=== PATIENT | male | born 1930 | race Native Hawaiian/Other Pacific Islander ===

== ENCOUNTER 2016-04-12 08:33 | Day surgery (SDC) | payer MEDICARE, BC, OTHER ==
[2016-04-10 17:38] VITALS: BMI 23.6
[~2016-04-12 08:33] MED LIST: LACTATED RINGERS 1,000 ML IV SCH; LIDOCAINE 1% 20 ML VIAL (10MG/ML) FOR IV START INTRADERMA PRN
[2016-04-12 08:57] VITALS: TEMP 97.4
[2016-04-12] MEDS ORDERED: SODIUM CHLORIDE 0.9% 1,000 ML IV ONE (09:12)
[2016-04-12] MEDS ORDERED: IV FLUID CONTINUATION 1,000 ML IV ONE (09:43)
--- NOTE | 2016-04-12 09:45 | P.PCN ---
Date of Procedure: 04/12/16 Procedure(s) Performed: Patient is an 85-year-old white male, admitted to the hospital for PEG tube malfunction and is scheduled for a PEG tube placement today. He has history of advanced dementia and noncommunicative. Procedure performed: PEG tube replacement Preoperative diagnosis: PEG tube malfunction Postoperative diagnosis: Successful PEG tube replacement with 20-[employer] balloon replacement tube Procedure After informed consent was obtained from the patient's legal guardian he was brought into the endoscopy unit. The previous placed 28-[employer] catheter was removed after the balloon was deflated. From the existing gastrostomy site , a 20-[employer] balloon replacement PEG tube was lubricated and was advanced into the stomach without any difficulty. The balloon was injected with 20 mL of water. The external bumper was placed a 5 cm keyur. Patient tolerated the procedure well. The caregiver he was told that the PEG tube can be used for feedings today.
[2016-04-12 09:47] VITALS: RESP 16
[2016-04-12 10:14] VITALS: BP 174/82; PULSE 58
== END 2016-04-12 10:17 ==
LOC: ORWHC2ENDO 08:33
PROVIDERS: ATTEND Internal Medicine Gastroenterology
DX: K94.23 Gastrostomy malfunction (principal); F03.90 Unspecified dementia, unspecified severity, without behavioral disturbance, psychotic disturbance, mood disturbance, and anxiety; F80.9 Developmental disorder of speech and language, unspecified
CPT/HCPCS: 43760

== ENCOUNTER 2016-06-29 20:41 | Inpatient (IN) | payer MEDICARE, BC, OTHER ==
[2016-06-29] MEDS ORDERED: PANTOPRAZOLE 40 MG/10 ML VIAL IVP STA (21:26)
[2016-06-29] MEDS ORDERED: ONDANSETRON 4 MG/2 ML VIAL IVP STA (21:26)
[2016-06-29] MEDS ORDERED: SODIUM CHLORIDE 0.9% 500 ML IV STA (21:26)
[2016-06-29] MEDS ORDERED: SODIUM CHLORIDE 0.9% 1,000 ML IV STA (21:26)
[2016-06-29 21:55] LABS: INR 1.2 (<1.1); Partial Thromboplastin Time 28.8 sec (22.0-30.0); Prothrombin Time 12.2 sec (9.0-12.0)
[2016-06-29 22:01] LABS: Basophils % (A) 0 %; CHCM 33.9; Eosinophils % (A) 0 %; HCT 47.5 % (39.0-53.0); HGB 15.6 gm/dL (13.0-17.5); Luc # (Auto) 0.03; Luc % (Auto) 1; Lymphocytes # (A) 0.2 k/uL (1.0-4.8); Lymphocytes % (A) 3 %; MCH 28.2 pg (25.0-35.0); MCHC 32.8 g/dL (31.0-37.0); Mean Platelet Volume 9.5; Monocytes # (A) 0.2 k/uL (0-1.0); Monocytes % (A) 4 %; Neutrophils # (A) 5.3 k/uL (1.3-7.7); Neutrophils % (A) 92 %; RBC 5.52 m/uL (4.30-5.90); RDW 14.6 % (11.5-15.5); WBC 5.7 k/uL (3.8-10.6); WBC (Perox) 6.28
[2016-06-29 22:04] LABS: ALT 21 U/L (21-72); AST 24 U/L (17-59); Alkaline Phosphatase 69 U/L (38-126); Anion Gap 14 mmol/L; Blood Urea Nitrogen 48 mg/dL (9-20); Calcium 9.6 mg/dL (8.4-10.2); Carbon Dioxide 32 mmol/L (22-30); Chloride 93 mmol/L (98-107); Glucose 195 mg/dL (74-99); Magnesium 2.6 mg/dL (1.6-2.3); Non-African American GFR(MDRD) >60 (>60 ml/min/1.73 sqM); Sodium 139 mmol/L (137-145); Total Bilirubin 0.8 mg/dL (0.2-1.3); Total Protein 6.9 g/dL (6.3-8.2)
--- NOTE | 2016-06-29 22:13 | ED ---
General Adult HPI - General Chief complaint: GI Bleed Stated complaint: GI BLEED Time Seen by Provider: 06/29/16 21:23 Source: EMS, RN notes reviewed, old records reviewed Mode of arrival: EMS Limitations: language barrier, altered mental status - History of Present Illness Initial comments: This is an 85-year-old male to the ER for evaluation of possible GI bleed. Coffee-ground emesis and PEG tube. Patient is unable to give his history, history obtained from EMS and transfer paperwork. Patient's been weak, lethargic with coffee-ground emesis in PEG tube. No active vomiting, no noted blood in stool. Patient is not on any known blood thinners. - Related Data Home Medications Medication Instructions Recorded Confirmed Aspirin 81 mg PEG/G-TUBE DAILY 01/08/15 06/29/16 Cholecalciferol [Vitamin D3] 1,000 unit PEG/G-TUBE DAILY@0800 01/08/15 06/29/16 Cyanocobalamin [Vitamin B-12] 500 mcg PEG/G-TUBE DAILY@0801/08/15 06/29/16 traZODone HCL [Desyrel] 50 mg PEG/G-TUBE HS@199901/08/15 06/29/16 LORazepam [Ativan] 0.5 tab PEG/G-TUBE Q8HR PRN 03/22/15 06/29/16 Acetaminophen [Tylenol] 500 mg PEG/G-TUBE Q6H PRN MDD 04/10/16 06/29/16 1,000MG Lactose-Reduced Food/Fiber [Jevity 90 ml PEG/G-TUBE BID 04/10/16 06/29/16 1.2 Dominic Liquid] Memantine HCl [Namenda] 5 mg PEG/G-TUBE BID 04/10/16 06/29/16 Metoprolol Succinate [Toprol XL] 25 mg PEG/G-TUBE DAILY 04/10/16 06/29/16 Skin Prep Unk 1 applic TOPICAL BID@799,199904/10/16 06/29/16 cloNIDine 0.1 MG/24HR PATCH 0.1 mg TRANSDERM FR 04/10/16 06/29/16 [Catapres-TTS] Losartan Potassium [Cozaar] 50 mg PEG/G-TUBE DAILY@1700 06/29/16 06/29/16 Allergies Allergy/AdvReac Type Severity Reaction Status Date / Time hydrocodone bitartrate AdvReac Unknown Verified 06/29/16 21:16 [From Lortab] prednisone AdvReac Unknown Verified 06/29/16 21:16 valium Allergy Unknown Uncoded 06/29/16 20:49 xanax Allergy Unknown Uncoded 06/29/16 20:49 Review of Systems ROS Statement: Those systems with pertinent positive or pertinent negative responses have been documented in the HPI. ROS Other: All systems not noted in ROS Statement are negative. Past Medical History Past Medical History: Coronary Artery Disease (CAD), CVA/TIA, Dementia, GERD/ Reflux, Hearing Disorder / Deafness, Hypertension, Memory Impairment, Osteoarthritis (OA), Pneumonia, Prostate Disorder Additional Past Medical History / Comment(s): Parkinsons, chronic kidney dis, TIA,MURMUR,BPH, MAC DEGENRATION, LT EYE SMALL CATARACT,DDD CHRONIC BACK PAIN, HIATAL HERNIA,LEWY BODY DEMENTIA, INCONT OF URINE (wears brief), OA IN DANNY SHOULDERS/BACK, [place] AND TINNITIS, WON'T WEAR HIS HEARING AID. Getting skin prep to heels danny. History of Any Multi-Drug Resistant Organisms: None Reported Past Surgical History: Heart Catheterization, Orthopedic Surgery, Tonsillectomy Additional Past Surgical History / Comment(s): Has PEG tube. Bilateral rotator cuff repair. No further surgical history available. Past Anesthesia/Blood Transfusion Reactions: No Reported Reaction Additional Past Anesthesia/Blood Transfusion Reaction / Comment(s): CLAUSTERPHOBIA, VERTIGO Past Psychological History: Anxiety Smoking Status: Former smoker Past Alcohol Use History: None Reported Additional Past Alcohol Use History / Comment(s): QUIT SMOKING MORE THAN 36 YEARS AGO. Extent of use is unknown. Past Drug Use History: None Reported - Past Family History Father History Unknown: Yes Additional Family Medical History / Comment(s): PT WAS ADOPTED Mother History Unknown: Yes Additional Family Medical History / Comment(s): PT WAS ADOPTED General Exam Limitations: language barrier, altered mental status General appearance: alert, lethargic, cachectic Head exam: Present: atraumatic, normocephalic, normal inspection Eye exam: Present: normal appearance, PERRL, EOMI. Absent: scleral icterus, conjunctival injection, periorbital swelling ENT exam: Present: normal exam, mucous membranes moist Neck exam: Present: normal inspection. Absent: tenderness, meningismus, lymphadenopathy Respiratory exam: Present: normal lung sounds bilaterally. Absent: respiratory distress, wheezes, rales, rhonchi, stridor Cardiovascular Exam: Present: regular rate, normal rhythm, normal heart sounds. Absent: systolic murmur, diastolic murmur, rubs, gallop, clicks GI/Abdominal exam: Present: soft, normal bowel sounds. Absent: distended, tenderness, guarding, rebound, rigid Extremities exam: Present: normal inspection, full ROM, normal capillary refill. Absent: tenderness, pedal edema, joint swelling, calf tenderness Back exam: Present: normal inspection Neurological exam: Present: alert, oriented X3, CN II-XII intact Psychiatric exam: Present: normal affect, normal mood Skin exam: Present: warm, dry, intact, normal color. Absent: rash Course Vital Signs 06/29/16 06/29/16 06/29/16 20:51 21:20 22:20 Temperature 98.2 F Pulse Rate 85 77 71 Respiratory 20 20 20 Rate Blood Pressure 157/75 152/75 130/65 O2 Sat by Pulse 93 L 98 97 Oximetry - Reevaluation(s) Reevaluation #1: 06/29/16 22:34 Patient is mildly lethargic although not showing any nausea vomiting of blood or blood here Medical Decision Making - Medical Decision Making 85 [place] yesterday with coffee-ground emesis and PEG, upper GI bleed, patient will be admitted for treading of hemoglobin and GI evaluation - Lab Data Result diagrams: 06/29/16 20:52 06/29/16 20:52 Lab Results 06/29/16 06/29/16 06/29/16 Range/Units 20:52 20:52 20:52 WBC 5.7 (3.8-10.6) k/uL RBC 5.52 (4.30-5.90) m/uL Hgb 15.6 (13.0-17.5) gm/dL Hct 47.5 (39.0-53.0) % MCV 86.0 (80.0-100.0) fL MCH 28.2 (25.0-35.0) pg MCHC 32.8 (31.0-37.0) g/dL RDW 14.6 (11.5-15.5) % Plt Count 153 (150-450) k/uL Neutrophils % 92 % Lymphocytes % 3 % Monocytes % 4 % Eosinophils % 0 % Basophils % 0 % Neutrophils # 5.3 (1.3-7.7) k/uL Lymphocytes # 0.2 L (1.0-4.8) k/uL Monocytes # 0.2 (0-1.0) k/uL Eosinophils # 0.0 (0-0.7) k/uL Basophils # 0.0 (0-0.2) k/uL PT (9.0-12.0) sec INR (<1.1) APTT (22.0-30.0) sec Sodium 139 (137-145) mmol/L Potassium 4.0 (3.5-5.1) mmol/L Chloride 93 L (98-107) mmol/L Carbon Dioxide 32 H (22-30) mmol/L Anion Gap 14 mmol/L BUN 48 H (9-20) mg/dL Creatinine 1.08 (0.66-1.25) mg/dL Est GFR (MDRD) Af Amer >60 (>60 ml/min/1.73 sqM) Est GFR (MDRD) Non-Af >60 (>60 ml/min/1.73 sqM) Glucose 195 H (74-99) mg/dL Calcium 9.6 (8.4-10.2) mg/dL Magnesium 2.6 H (1.6-2.3) mg/dL Total Bilirubin 0.8 (0.2-1.3) mg/dL AST 24 (17-59) U/L ALT 21 (21-72) U/L Alkaline Phosphatase 69 (38-126) U/L Total Creatine Kinase 26 L (55-170) U/L CK-MB (CK-2) 0.4 (0.0-2.4) ng/mL CK-MB (CK-2) Rel Index 1.5 Troponin I 0.018 (0.000-0.034) ng/mL Total Protein 6.9 (6.3-8.2) g/dL Albumin 3.9 (3.5-5.0) g/dL Lipase 29 (23-300) U/L 06/29/16 Range/Units 20:52 WBC (3.8-10.6) k/uL RBC (4.30-5.90) m/uL Hgb (13.0-17.5) gm/dL Hct (39.0-53.0) % MCV (80.0-100.0) fL MCH (25.0-35.0) pg MCHC (31.0-37.0) g/dL RDW (11.5-15.5) % Plt Count (150-450) k/uL Neutrophils % % Lymphocytes % % Monocytes % % Eosinophils % % Basophils % % Neutrophils # (1.3-7.7) k/uL Lymphocytes # (1.0-4.8) k/uL Monocytes # (0-1.0) k/uL Eosinophils # (0-0.7) k/uL Basophils # (0-0.2) k/uL PT 12.2 H (9.0-12.0) sec INR 1.2 (<1.1) APTT 28.8 (22.0-30.0) sec Sodium (137-145) mmol/L Potassium (3.5-5.1) mmol/L Chloride (98-107) mmol/L Carbon Dioxide (22-30) mmol/L Anion Gap mmol/L BUN (9-20) mg/dL Creatinine (0.66-1.25) mg/dL Est GFR (MDRD) Af Amer (>60 ml/min/1.73 sqM) Est GFR (MDRD) Non-Af (>60 ml/min/1.73 sqM) Glucose (74-99) mg/dL Calcium (8.4-10.2) mg/dL Magnesium (1.6-2.3) mg/dL Total Bilirubin (0.2-1.3) mg/dL AST (17-59) U/L ALT (21-72) U/L Alkaline Phosphatase (38-126) U/L Total Creatine Kinase (55-170) U/L CK-MB (CK-2) (0.0-2.4) ng/mL CK-MB (CK-2) Rel Index Troponin I (0.000-0.034) ng/mL Total Protein (6.3-8.2) g/dL Albumin (3.5-5.0) g/dL Lipase (23-300) U/L Disposition Clinical Impression: Gastrointestinal hemorrhage, Upper gastrointestinal hemorrhage Disposition: ADMITTED IP TO THIS HOSP Condition: Fair Referrals: Kody Parker MD [Primary Care Provider] - 1-2 days
[2016-06-29 22:25] LABS: Creatine Kinase MB 0.4 ng/mL (0.0-2.4); Troponin I 0.018 ng/mL (0.000-0.034)
[2016-06-29] MEDS ORDERED: ONDANSETRON 4 MG/2 ML VIAL IVP PRN (22:35)
[2016-06-30 01:29] VITALS: BMI 21.7
[2016-06-30] MEDS: PANTOPRAZOLE 40 MG/10 ML VIAL IVP SCH ×2 (08:47→22:55)
--- NOTE | 2016-06-30 09:02 | P.CONS ---
History of Present Illness - Reason for Consult Consult date: 06/30/16 GI bleed Requesting physician: Kody Parker - History of Present Illness 85-year-old gentleman patient of Dr. Parker past medical history of PEG tube with recent replacement March 2016 for malfunction, advanced dementia noncommunicative, GERD, hypertension, Parkinson's, macular degeneration, anxiety , and chronic back pain. Consultation requested for possible GI bleed. Presents to hospital for evaluation of coffee-ground colored material emanating from PEG tube. No reports of emesis gross hematochezia or melena. Admission hemoglobin 15.6. Platelet 153. Hemoglobin 04/25/2016 was 12.8. INR 1.2. BUN 48. Creatinine 1.0. Lactic acid 3.1 with hydration 1.6. Review of Systems Constitutional: Denies fever, chills, sweats, weight gain, or loss. HEENT: Negative for migraines, blurred vision or loss, earaches, drainage, tinnitus, oral mucosal lesions, dysphagia, or odynophagia. Hearing loss. Cardiac: Hypertension. Negative for chest pain, arrhythmias, or palpitation. Respiratory: Negative for shortness of breath, hemoptysis, cough, or sputum production. Gastrointestinal: See HPI for pertinent findings. Genitourinary: Negative for hematuria, urgency, frequency, polyuria, dysuria, or penile discharge. Musculoskeletal: Chronic back pain. Neurologic: Parkinson's disease. Negative for stroke or TIA. Endocrine: Negative for thyroid problems. Skin: Negative for rash or itching. Psychiatric: Anxiety. Noncommunicative advanced dementia. ROS unobtainable: due to mental status All systems: negative (See HPI medical records reviewed for ROS) Past Medical History Past Medical History: Coronary Artery Disease (CAD), CVA/TIA, Dementia, GERD/ Reflux, Hearing Disorder / Deafness, Hypertension, Memory Impairment, Osteoarthritis (OA), Pneumonia, Prostate Disorder Additional Past Medical History / Comment(s): Parkinsons, chronic kidney dis, TIA,MURMUR,BPH, MAC DEGENRATION, LT EYE SMALL CATARACT,DDD CHRONIC BACK PAIN, HIATAL HERNIA,LEWY BODY DEMENTIA, INCONT OF URINE (wears brief), OA IN [place] SHOULDERS/BACK, [place] AND TINNITIS, WON'T WEAR HIS HEARING AID. Getting skin prep to heels danny. History of Any Multi-Drug Resistant Organisms: None Reported Past Surgical History: Heart Catheterization, Orthopedic Surgery, Tonsillectomy Additional Past Surgical History / Comment(s): Has PEG tube. Bilateral rotator cuff repair. No further surgical history available. Past Anesthesia/Blood Transfusion Reactions: No Reported Reaction Additional Past Anesthesia/Blood Transfusion Reaction / Comm: CLAUSTERPHOBIA, VERTIGO Past Psychological History: Anxiety Smoking Status: Never smoker Past Alcohol Use History: None Reported Additional Past Alcohol Use History / Comment(s): QUIT SMOKING MORE THAN 36 YEARS AGO. Extent of use is unknown. Past Drug Use History: None Reported - Past Family History Father History Unknown: Yes Additional Family Medical History / Comment(s): PT WAS ADOPTED Mother History Unknown: Yes Additional Family Medical History / Comment(s): PT WAS ADOPTED Medications and Allergies Home Medications Medication Instructions Recorded Confirmed Type Aspirin 81 mg PEG/G-TUBE DAILY 01/08/15 06/29/16 History Cholecalciferol [Vitamin D3] 1,000 unit PEG/G-TUBE DAILY@0800 01/08/15 06/29/16 History Cyanocobalamin [Vitamin B-12] 500 mcg PEG/G-TUBE DAILY@0800 01/08/15 06/29/16 History traZODone HCL [Desyrel] 50 mg PEG/G-TUBE HS@199901/08/15 06/29/16 History LORazepam [Ativan] 0.5 tab PEG/G-TUBE Q8HR PRN 03/22/15 06/29/16 History Acetaminophen [Tylenol] 500 mg PEG/G-TUBE Q6H PRN MDD 04/10/16 06/29/16 History 1,000MG Lactose-Reduced Food/Fiber [Jevity 90 ml PEG/G-TUBE BID 04/10/16 06/29/16 History 1.2 Dominic Liquid] Memantine HCl [Namenda] 5 mg PEG/G-TUBE BID 04/10/16 06/29/16 History Metoprolol Succinate [Toprol XL] 25 mg PEG/G-TUBE DAILY 04/10/16 06/29/16 History Skin Prep Unk 1 applic TOPICAL BID@0800,199904/10/16 06/29/16 History cloNIDine 0.1 MG/24HR PATCH 0.1 mg TRANSDERM FR 04/10/16 06/29/16 History [Catapres-TTS] Losartan Potassium [Cozaar] 50 mg PEG/G-TUBE DAILY@1700 06/29/16 06/29/16 History Allergies Allergy/AdvReac Type Severity Reaction Status Date / Time hydrocodone bitartrate AdvReac Unknown Verified 06/29/16 21:16 [From Lortab] prednisone AdvReac Unknown Verified 06/29/16 21:16 valium Allergy Unknown Uncoded 06/29/16 20:49 xanax Allergy Unknown Uncoded 06/29/16 20:49 Physical Exam Vitals: Vital Signs Temp Pulse Pulse Resp BP BP Pulse Ox 06/30/16 04:00 97.1 F L 115 H 18 115/74 93 L 06/29/16 23:30 98 F 85 18 169/79 95 06/29/16 22:58 98.4 F 78 18 130/65 98 Intake and Output 06/29/16 06/30/16 06/30/16 22:59 06:59 14:59 Other: # Voids 1 # Bowel Movements 1 Weight 61 kg General appearance: The patient is awake no acute distress noncommunicative. HET: Head is normocephalic and atraumatic. Pupils are equal and reactive. Oropharynx is clear without lesions. Neck: Supple without lymphadenopathy. Trachea midline. Heart: S1 S2. Regular rate and rhythm. Lungs: No crackles or wheezes are heard. Abdomen: Soft, peg tube without erythema or drainage, bleeding. Nondistended with bowel sounds. No peritoneal signs. No palpable organomegaly or masses. Extremities: Normal skin color and turgor. No cyanosis, rash, ulceration, clubbing, or edema. Radial and pedal pulses are 2/4 bilaterally. Neurological: No focal deficits. Strength and sensation are grossly intact. Results CBC & Chem 7: 06/29/16 20:52 06/29/16 20:52 Assessment and Plan (1) Upper gastrointestinal hemorrhage Narrative/Plan: Coffee-ground colored gastric fluid emanating from PEG site possible peptic ulcer disease possible gastritis possible esophagitis Status: Acute (2) S/P percutaneous endoscopic gastrostomy (PEG) tube placement Narrative/Plan: History of PEG tube Status: Acute (3) Dementia Status: Acute (4) Parkinsons disease Status: Acute Plan: 1. IV Protonix 40 mg every 12 hours. 2. Monitor CBC closely. 3. Bedside peg lavage performed with 60-90 ml water; bilious fluid with black randall noted.Hemoglobin in the 15 range. EGD contingent on clinical course at this time would advise close observation if patient continues to manifest symptoms of active GI bleeding will proceed accordingly. 4. Start tube feeds slowly this afternoon and observe. 5. We'll follow with you. Thank you for this kind referral and the opportunity to participate in the care of your patient. This consultation was discussed with Dr. Mcclure. The impression and plan of care have been directed as dictated.
[2016-06-30] MEDS ORDERED: LORazepam 0.5 MG TAB PEG/G-TUBE PRN (14:17)
--- NOTE | 2016-06-30 14:17 | P.HPIM ---
History of Present Illness H&P Date: 06/30/16 Chief Complaint: Coffee-ground emesis. This is an 85-year-old male one of my patient with a previous medical history significant for CAD, hypertension and hypertensive cardio vascular disease, large prostate, vascular dementia, parkinsonism, chronic and disease stage III, PEG tube placement and replacement about a few months back, patient was in his usual state of health about yesterday when he developed to have a significant coffee-ground emesis as well as a coffee ground material coming out of the PEG tube site looks, patient blood pressure was stable and vital signs were all stable however because of the presentation he was sent to the ER for evaluation his hemoglobin is normal however because of that he was admitted to the hospital for evaluation and GI consultation for evaluation of the PEG tube site and for possible upper GI bleed. Patient has been [facility] at [facility] by our service, he has been bed ridden/wheelchair within secondary to significant spasticity in both lower extremities, and he has been using tube feeding along with comfort food. Review of Systems Constitutional: Reports anorexia, Reports fatigue, Reports malaise, Reports weakness, Reports weight loss Eyes: bilateral bulging eye, denies decreased vision, denies diplopia, denies discharge Ears: bilateral: decreased hearing Ears, nose, mouth and throat: Reports dysphagia, Denies neck lump, Denies sore throat, Denies vertigo Cardiovascular: Reports high blood pressure, Reports shortness of breath, Denies chest pain, Denies decreased exercise tolerance, Denies dyspnea on exertion, Denies phlebitis, Denies rapid heart beat Respiratory: Denies congestion, Denies cough with sputum, Denies dyspnea, Denies home oxygen, Denies sleep apnea, Denies snoring, Denies wheezing Gastrointestinal: Reports nausea, Reports vomiting, Denies abdominal pain, Denies bloating, Denies BRBPR, Denies change in bowel habits, Denies coffee ground emesis, Denies heartburn, Denies hematemesis, Denies hematochezia, Denies indigestion, Denies melena Genitourinary: Denies dysuria, Denies nocturia Musculoskeletal: Reports atrophy, Reports frequent falls, Reports gait dysfunction, Reports low back pain, Reports morning stiffness Musculoskeletal: absent: ankle pain, ankle stiffness, ankle swelling, elbow pain , elbow stiffness, elbow swelling, foot pain, foot stiffness, foot swelling, hand pain, hand stiffness, hand swelling, hip pain, hip stiffness, hip swelling , knee pain, knee stiffness, knee swelling, shoulder pain, shoulder stiffness, shoulder swelling, wrist pain, wrist stiffness, wrist swelling Integumentary: Denies pruritus, Denies rash Neurological: Reports balance difficulties, Reports change in mentation, Reports confusion, Reports gait dysfunction, Reports hearing difficulties, Reports spasticity, Reports tremors, Reports weakness, Denies numbness Psychiatric: Reports anxiety, Reports memory loss, Denies depression, Denies sadness/tearfulness, Denies sleep disturbances, Denies suicidal ideation Endocrine: Denies fatigue, Denies weight change Past Medical History Past Medical History: Coronary Artery Disease (CAD), CVA/TIA, Dementia, GERD/ Reflux, Hearing Disorder / Deafness, Hypertension, Memory Impairment, Osteoarthritis (OA), Pneumonia, Prostate Disorder Additional Past Medical History / Comment(s): Parkinsons, chronic kidney dis, TIA,MURMUR,BPH, MAC DEGENRATION, LT EYE SMALL CATARACT,DDD CHRONIC BACK PAIN, HIATAL HERNIA,LEWY BODY DEMENTIA, INCONT OF URINE (wears brief), OA IN DANNY SHOULDERS/BACK, [place] AND TINNITIS, WON'T WEAR HIS HEARING AID. Getting skin prep to heels danny. History of Any Multi-Drug Resistant Organisms: None Reported Past Surgical History: Heart Catheterization, Orthopedic Surgery, Tonsillectomy Additional Past Surgical History / Comment(s): Has PEG tube. Bilateral rotator cuff repair. No further surgical history available. Past Anesthesia/Blood Transfusion Reactions: No Reported Reaction Additional Past Anesthesia/Blood Transfusion Reaction / Comment(s): CLAUSTERPHOBIA, VERTIGO Past Psychological History: Anxiety Smoking Status: Never smoker Past Alcohol Use History: None Reported Additional Past Alcohol Use History / Comment(s): QUIT SMOKING MORE THAN 36 YEARS AGO. Extent of use is unknown. Past Drug Use History: None Reported - Past Family History Father History Unknown: Yes Additional Family Medical History / Comment(s): PT WAS ADOPTED Mother History Unknown: Yes Additional Family Medical History / Comment(s): PT WAS ADOPTED Medications and Allergies Home Medications Medication Instructions Recorded Confirmed Type Aspirin 81 mg PEG/G-TUBE DAILY 01/08/15 06/29/16 History Cholecalciferol [Vitamin D3] 1,000 unit PEG/G-TUBE DAILY@0800 01/08/15 06/29/16 History Cyanocobalamin [Vitamin B-12] 500 mcg PEG/G-TUBE DAILY@0800 01/08/15 06/29/16 History traZODone HCL [Desyrel] 50 mg PEG/G-TUBE HS@199901/08/15 06/29/16 History LORazepam [Ativan] 0.5 tab PEG/G-TUBE Q8HR PRN 03/22/15 06/29/16 History Acetaminophen [Tylenol] 500 mg PEG/G-TUBE Q6H PRN MDD 04/10/16 06/29/16 History 1,000MG Lactose-Reduced Food/Fiber [Jevity 90 ml PEG/G-TUBE BID 04/10/16 06/29/16 History 1.2 Dominic Liquid] Memantine HCl [Namenda] 5 mg PEG/G-TUBE BID 04/10/16 06/29/16 History Metoprolol Succinate [Toprol XL] 25 mg PEG/G-TUBE DAILY 04/10/16 06/29/16 History Skin Prep Unk 1 applic TOPICAL BID@799,199904/10/16 06/29/16 History cloNIDine 0.1 MG/24HR PATCH 0.1 mg TRANSDERM FR 04/10/16 06/29/16 History [Catapres-TTS] Losartan Potassium [Cozaar] 50 mg PEG/G-TUBE DAILY@1700 06/29/16 06/29/16 History Allergies Allergy/AdvReac Type Severity Reaction Status Date / Time hydrocodone bitartrate AdvReac Unknown Verified 06/29/16 21:16 [From Lortab] prednisone AdvReac Unknown Verified 06/29/16 21:16 valium Allergy Unknown Uncoded 06/29/16 20:49 xanax Allergy Unknown Uncoded 06/29/16 20:49 Physical Exam Vitals: Vital Signs Temp Pulse Pulse Resp BP BP Pulse Ox 06/30/16 12:00 75 16 157/71 95 06/30/16 08:00 98.1 F 75 16 131/62 95 06/30/16 04:00 97.1 F L 115 H 18 115/74 93 L 06/29/16 23:30 98 F 85 18 169/79 95 06/29/16 22:58 98.4 F 78 18 130/65 98 Intake and Output 06/29/16 06/30/16 06/30/16 22:59 06:59 14:59 Other: # Voids 1 # Bowel Movements 1 Weight 61 kg 61 kg Patient Weight 07/01/16 06:59 Weight 61 kg - Constitutional General appearance: no acute distress, thin - EENT Eyes: edentulous, EOMI, PERRLA, no ptosis, no scleral icterus, normal appearance ENT: hard of hearing, normal oropharynx, no thrush Ears: bilateral: normal - Neck Neck: no lymphadenopathy, no normal ROM, no other, rigidity, no stridor, no thyromegaly Carotids: bilateral: upstroke delayed Thyroid: bilateral: normal size - Respiratory Respiratory: bilateral: diminished, negative: dullness, rales, rhonchi, wheezing , prolonged expiration, prolonged inspiration - Cardiovascular Rhythm: regular Heart sounds: normal: S1, S2 Abnormal Heart Sounds: systolic murmur, no rub, S4 Gallop, no click - Gastrointestinal General gastrointestinal: normal bowel sounds, soft, no splenomegaly, no tenderness (There is a PEG tube), no umbilical hernia - Integumentary Integumentary: normal, normal turgor - Neurologic Neurologic: CNII-XII intact - Musculoskeletal Musculoskeletal: generalized weakness - Psychiatric Psychiatric: no A&O x's 3, no appropriate affect, no intact judgment & insight Results CBC & Chem 7: 06/29/16 20:52 06/29/16 20:52 Thrombosis Risk Factor Assmnt - DVT/VTE Prophylaxis DVT/VTE Prophylaxis: Pharmacologic Prophylaxis ordered, Mechanical Prophylaxis ordered - Choose All That Apply Other Risk Factors: Yes Each Risk Factor Represents 3 Points: Age 75 years or older Thrombosis Risk Factor Assessment Total Risk Factor Score: 3 Thrombosis Risk Factor Assessment Level: Moderate Risk Assessment and Plan Plan: Assessment and plan: 1. Coffee-ground emesis with possible GI bleed. Hemoglobin is stable at this time, continue IV fluid resuscitation the form of normal saline, start the patient on Protonix 40 mg IV push every 12 hours, GI consultation for possible EGD if needed be. Monitor the patient hemoglobin and hematocrit every 8 hours for the next 24 hours. 2. CAD. Continue patient on metoprolol 25 mg per PEG tube once every day, hold aspirin for now. 3. Hypertension and hypertensive cardiovascular disease. Continue clonidine patch 0.1 mg once every week, continue metoprolol 25 mg per PEG tube once every day, increase losartan to 100 mg per PEG tube once every day. 4. Lewy body dementia. Continue patient on Namenda 5 mg per PEG tube twice every day. 5. Parkinsonism. Patient is not taking any medication at this time continue lorazepam 0.5 mg per PEG tube 3 times every day as needed. 6. Enlarged prostate. Monitor the patient for urinary retention. 7. History of TIA in the past stable at this time. 8. Behavioral disturbances with the dementia. Continue Ativan 0.5 mg per PEG tube 3 times every day. 9. Chronic kidney disease stage II. Stable at this time. 10. DVT prophylaxis. Continue patient on heparin 5000 units subcutaneously every 12 hours, bilateral knee-high ZARA marielose, SCD's. 11. GI prophylaxis. Protonix 40 mg IV push every 12 hours. 12. Patient is full code. 13. Admit to inpatient. Estimate a length of stay 2 midnights.
[2016-06-30] MEDS ORDERED: cloNIDine 0.1 MG/24HR PATCH 1 PATCH PATCH TRANSDERM SCH (15:00)
[2016-06-30 15:14] LABS: Basophils % (A) 0 %; CH 28.8; CHCM 33.1; Eosinophils % (A) 0 %; HDW 2.75; Luc % (Auto) 2; Lymphocytes # (A) 0.4 k/uL (1.0-4.8); Lymphocytes % (A) 9 %; MCH 28.4 pg (25.0-35.0); MCHC 32.5 g/dL (31.0-37.0); MCV 87.4 fL (80.0-100.0); Mean Platelet Volume 8.6; Monocytes # (A) 0.2 k/uL (0-1.0); Monocytes % (A) 6 %; Neutrophils # (A) 3.4 k/uL (1.3-7.7); Neutrophils % (A) 83 %; RBC 3.88 m/uL (4.30-5.90); RDW 14.9 % (11.5-15.5); WBC 4.1 k/uL (3.8-10.6); WBC (Perox) 4.62
[2016-06-30] MEDS ORDERED: SKIN PREP TOPICAL SCH (20:00)
[2016-06-30] MEDS: LOSARTAN 50 MG TAB PEG/G-TUBE SCH (22:53)
[2016-06-30] MEDS: MEMANTINE 5 MG TAB PEG/G-TUBE SCH (22:54)
[2016-06-30] MEDS: HEPARIN SODIUM,PORCINE 5,000 UNIT/ML 1 ML VIAL SQ SCH (22:54)
[2016-06-30] MEDS: traZODone HCL 50 MG TAB PEG/G-TUBE SCH (22:54)
[2016-07-01 06:10] LABS: Basophils % (A) 0 %; CH 28.8; Eosinophils % (A) 1 %; HCT 31.5 % (39.0-53.0); HDW 2.84; HGB 10.3 gm/dL (13.0-17.5); Luc # (Auto) 0.09; Luc % (Auto) 3; Lymphocytes # (A) 0.3 k/uL (1.0-4.8); Lymphocytes % (A) 10 %; MCH 28.8 pg (25.0-35.0); MCHC 32.9 g/dL (31.0-37.0); MCV 87.7 fL (80.0-100.0); Mean Platelet Volume 9.3; Monocytes # (A) 0.3 k/uL (0-1.0); Monocytes % (A) 8 %; Neutrophils # (A) 2.6 k/uL (1.3-7.7); Neutrophils % (A) 78 %; RBC 3.59 m/uL (4.30-5.90); RDW 14.7 % (11.5-15.5); WBC 3.3 k/uL (3.8-10.6); WBC (Perox) 3.56
[2016-07-01 06:34] LABS: ALT 27 U/L (21-72); AST 17 U/L (17-59); Alkaline Phosphatase 51 U/L (38-126); Anion Gap 6 mmol/L; Blood Urea Nitrogen 29 mg/dL (9-20); Calcium 8.3 mg/dL (8.4-10.2); Carbon Dioxide 27 mmol/L (22-30); Chloride 110 mmol/L (98-107); Glucose 93 mg/dL (74-99); Non-African American GFR(MDRD) >60 (>60 ml/min/1.73 sqM); Potassium 3.3 mmol/L (3.5-5.1); Sodium 143 mmol/L (137-145); Total Bilirubin 0.6 mg/dL (0.2-1.3)
[2016-07-01] MEDS: CHOLECALCIFEROL 1,000 UNIT TAB PEG/G-TUBE SCH ×2 (08:12→09:57)
[2016-07-01] MEDS: PANTOPRAZOLE 40 MG/10 ML VIAL IVP SCH ×2 (08:12→20:57)
[2016-07-01] MEDS: HEPARIN SODIUM,PORCINE 5,000 UNIT/ML 1 ML VIAL SQ SCH ×2 (08:13→20:59)
[2016-07-01] MEDS ORDERED: METOPROLOL SUCCINATE (ER) 25 MG TAB.ER.24H PO SCH (09:00)
[2016-07-01] MEDS: POTASSIUM CHLORIDE 20 MEQ, LIDOCAINE 2% INJ 20 MG in SODIUM CHLORIDE 0.9% 100 ML IVPB SCH ×3 (09:36→14:31)
[2016-07-01] MEDS: METOPROLOL TARTRATE 12.5 MG TAB PO SCH ×2 (09:57→20:57)
[2016-07-01] MEDS: MEMANTINE 5 MG TAB PEG/G-TUBE SCH ×2 (09:57→20:57)
--- NOTE | 2016-07-01 10:18 | P.PN ---
Subjective This is an 85-year-old male one of my patient with a previous medical history significant for CAD, hypertension and hypertensive cardio vascular disease, large prostate, vascular dementia, parkinsonism, chronic and disease stage III, PEG tube placement and replacement about a few months back, patient was in his usual state of health about yesterday when he developed to have a significant coffee-ground emesis as well as a coffee ground material coming out of the PEG tube site looks, patient blood pressure was stable and vital signs were all stable however because of the presentation he was sent to the ER for evaluation his hemoglobin is normal however because of that he was admitted to the hospital for evaluation and GI consultation for evaluation of the PEG tube site and for possible upper GI bleed. Patient has been cared for at [facility] by our service, he has been bed ridden/wheelchair within secondary to significant spasticity in both lower extremities, and he has been using tube feeding along with comfort food. 07/01: Patient has been seen by GI with recommendations to continue Protonix 40 mg every 12 hours, bedside PEG lavage. Hemoglobin has dropped to 10.3. Potassium will be replaced. Metoprolol succinate changed to Lopressor to be given through PEG tube. Objective - Vital Signs Vital signs: Vital Signs Temp 97.1 F L 07/01/16 08:00 Pulse 65 07/01/16 08:00 Resp 24 07/01/16 08:00 BP 170/79 07/01/16 08:00 Pulse Ox 98 07/01/16 08:00 Intake & Output 06/30/16 07/01/16 07/01/16 18:59 06:59 18:59 Intake Total 1000 Balance 1000 Weight 61 kg 60.5 kg Intake: Intake, IV Titration 1000 Amount Sodium Chloride 0.9% 1, 1000 000 ml @ 100 mls/hr IV . Q10H STA Rx#:[id number] Other: Voiding Method Diaper Incontinent # Voids 1 # Bowel Movements 1 - Exam General appearance: no acute distress, thin - EENT Eyes: edentulous, EOMI, PERRLA, no ptosis, no scleral icterus, normal appearance ENT: hard of hearing, normal oropharynx, no thrush Ears: bilateral: normal - Neck Neck: no lymphadenopathy, no normal ROM, no other, rigidity, no stridor, no thyromegaly Carotids: bilateral: upstroke delayed Thyroid: bilateral: normal size - Respiratory Respiratory: bilateral: diminished, negative: dullness, rales, rhonchi, wheezing , prolonged expiration, prolonged inspiration - Cardiovascular Rhythm: regular Heart sounds: normal: S1, S2 Abnormal Heart Sounds: systolic murmur, no rub, S4 Gallop, no click - Gastrointestinal General gastrointestinal: normal bowel sounds, soft, no splenomegaly, no tenderness (There is a PEG tube), no umbilical hernia - Integumentary Integumentary: normal, normal turgor - Neurologic Neurologic: CNII-XII intact - Musculoskeletal Musculoskeletal: generalized weakness - Psychiatric Psychiatric: no A&O x's 3, no appropriate affect, no intact judgment & insight - Labs CBC & Chem 7: 07/01/16 05:50 07/01/16 05:50 Labs: Abnormal Lab Results - Last 24 Hours (Table) 06/30/16 07/01/16 07/01/16 Range/Units 14:43 05:50 05:50 WBC 3.3 L (3.8-10.6) k/uL RBC 3.88 L 3.59 L (4.30-5.90) m/uL Hgb 11.0 L D 10.3 L (13.0-17.5) gm/dL Hct 34.0 L 31.5 L (39.0-53.0) % Plt Count 134 L 121 L (150-450) k/uL Lymphocytes # 0.4 L 0.3 L (1.0-4.8) k/uL Potassium 3.3 L (3.5-5.1) mmol/L Chloride 110 H (98-107) mmol/L BUN 29 H (9-20) mg/dL Calcium 8.3 L (8.4-10.2) mg/dL Total Protein 5.0 L (6.3-8.2) g/dL Albumin 2.5 L (3.5-5.0) g/dL Assessment and Plan Plan: 1. Coffee-ground emesis with possible GI bleed. Hemoglobin is stable at this time, continue IV fluid resuscitation the form of normal saline, start the patient on Protonix 40 mg IV push every 12 hours, GI consultation for possible EGD if needed be. Monitor the patient hemoglobin and hematocrit every 8 hours for the next 24 hours. PEG tube irrigation. 2. CAD. Continue patient on metoprolol 25 mg per PEG tube once every day, hold aspirin for now. 3. Hypertension and hypertensive cardiovascular disease. Continue clonidine patch 0.1 mg once every week, continue metoprolol 25 mg per PEG tube once every day, increase losartan to 100 mg per PEG tube once every day. 4. Lewy body dementia. Continue patient on Namenda 5 mg per PEG tube twice every day. 5. Parkinsonism. Patient is not taking any medication at this time continue lorazepam 0.5 mg per PEG tube 3 times every day as needed. 6. Enlarged prostate. Monitor the patient for urinary retention. 7. History of TIA in the past stable at this time. 8. Behavioral disturbances with the dementia. Continue Ativan 0.5 mg per PEG tube 3 times every day. 9. Chronic kidney disease stage II. Stable at this time. 10. DVT prophylaxis. Continue patient on heparin 5000 units subcutaneously every 12 hours, bilateral knee-high ZARA hose, SCD's. 11. GI prophylaxis. Protonix 40 mg IV push every 12 hours. 12. Patient is full code. 13. Admit to inpatient. Estimate a length of stay 2 midnights. Discharge plan: Return to [facility] on Sunday Impression and plan of care have been directed as dictated by the signing physician. Isidra Potter nurse practitioner acting as scribe for signing physician. Time with Patient: Greater than 30
[2016-07-01] MEDS: LOSARTAN 50 MG TAB PEG/G-TUBE SCH (16:27)
[2016-07-01] MEDS: traZODone HCL 50 MG TAB PEG/G-TUBE SCH (20:57)
[2016-07-02 05:04] LABS: Appearance,Urine Clear (Clear); Bilirubin,Urine Negative (Negative); Glucose,Urine (UA) Trace (Negative); Ketones,Urine Negative (Negative); Leukocyte Esterase,Urine Negative (Negative); Nitrite,Urine Negative (Negative); Protein,Urine Negative (Negative); Specific Gravity,Urine 1.012 (1.001-1.035); UA Billing (MACRO vs. MICRO) CHEM
[2016-07-02 06:34] LABS: CH 28.4; CHCM 32.8; HDW 2.94; HGB 10.8 gm/dL (13.0-17.5); MCH 28.5 pg (25.0-35.0); MCHC 32.7 g/dL (31.0-37.0); MCV 87.1 fL (80.0-100.0); Mean Platelet Volume 8.9; RDW 14.5 % (11.5-15.5); WBC 3.5 k/uL (3.8-10.6)
[2016-07-02 07:03] LABS: ALT 22 U/L (21-72); AST 16 U/L (17-59); Alkaline Phosphatase 83 U/L (38-126); Anion Gap 9 mmol/L; Blood Urea Nitrogen 24 mg/dL (9-20); Calcium 8.6 mg/dL (8.4-10.2); Carbon Dioxide 24 mmol/L (22-30); Chloride 109 mmol/L (98-107); Glucose 161 mg/dL (74-99); Non-African American GFR(MDRD) >60 (>60 ml/min/1.73 sqM); Potassium 3.3 mmol/L (3.5-5.1); Sodium 142 mmol/L (137-145); Total Bilirubin 0.4 mg/dL (0.2-1.3); Total Protein 5.3 g/dL (6.3-8.2)
[2016-07-02] MEDS ORDERED: POTASSIUM CHLORIDE ORAL LIQUID 40 MEQ/30 ML CUP PO ONE (09:30)
[2016-07-02] MEDS: METOPROLOL TARTRATE 12.5 MG TAB PO SCH ×2 (09:35→22:02)
[2016-07-02] MEDS: PANTOPRAZOLE 40 MG/10 ML VIAL IVP SCH ×2 (09:35→22:02)
[2016-07-02] MEDS: HEPARIN SODIUM,PORCINE 5,000 UNIT/ML 1 ML VIAL SQ SCH (09:36)
[2016-07-02] MEDS: CHOLECALCIFEROL 1,000 UNIT TAB PEG/G-TUBE SCH (09:36)
[2016-07-02] MEDS: MEMANTINE 5 MG TAB PEG/G-TUBE SCH ×2 (09:36→22:02)
--- NOTE | 2016-07-02 09:46 | P.PN ---
Subjective This is an 85-year-old male one of my patient with a previous medical history significant for CAD, hypertension and hypertensive cardio vascular disease, large prostate, vascular dementia, parkinsonism, chronic and disease stage III, PEG tube placement and replacement about a few months back, patient was in his usual state of health about yesterday when he developed to have a significant coffee-ground emesis as well as a coffee ground material coming out of the PEG tube site looks, patient blood pressure was stable and vital signs were all stable however because of the presentation he was sent to the ER for evaluation his hemoglobin is normal however because of that he was admitted to the hospital for evaluation and GI consultation for evaluation of the PEG tube site and for possible upper GI bleed. Patient has been cared for at [facility] by our service, he has been bed ridden/wheelchair within secondary to significant spasticity in both lower extremities, and he has been using tube feeding along with comfort food. 07/01: Patient has been seen by GI with recommendations to continue Protonix 40 mg every 12 hours, bedside PEG lavage. Hemoglobin has dropped to 10.3. Potassium will be replaced. Metoprolol succinate changed to Lopressor to be given through PEG tube. 07/02: Please note bedside PEG lavage was not ordered. He has been resumed on tube feedings. He should and is on PEG tube feedings. Potassium will be replaced. Heparin discontinued due to low platelets and GI bleed. Catapres patch increased due to high blood pressure readings. Patient will be transferred to [facility]. Objective - Vital Signs Vital signs: Vital Signs Temp 97.7 F 07/01/16 12:00 Pulse 60 07/01/16 12:00 Resp 20 07/01/16 12:00 BP 178/77 07/01/16 12:00 Pulse Ox 100 07/01/16 12:00 Intake & Output 06/30/16 07/01/16 07/01/16 18:59 06:59 18:59 Intake Total 1000 Balance 1000 Weight 61 kg 60.5 kg Intake: Intake, IV Titration 1000 Amount Sodium Chloride 0.9% 1, 1000 000 ml @ 100 mls/hr IV . Q10H STA Rx#:[id number] Other: Voiding Method Diaper Diaper Incontinent Incontinent # Voids 1 1 # Bowel Movements 1 1 - Exam General appearance: no acute distress, thin - EENT Eyes: edentulous, EOMI, PERRLA, no ptosis, no scleral icterus, normal appearance ENT: hard of hearing, normal oropharynx, no thrush Ears: bilateral: normal - Neck Neck: no lymphadenopathy, no normal ROM, no other, rigidity, no stridor, no thyromegaly Carotids: bilateral: upstroke delayed Thyroid: bilateral: normal size - Respiratory Respiratory: bilateral: diminished, negative: dullness, rales, rhonchi, wheezing , prolonged expiration, prolonged inspiration - Cardiovascular Rhythm: regular Heart sounds: normal: S1, S2 Abnormal Heart Sounds: systolic murmur, no rub, S4 Gallop, no click - Gastrointestinal General gastrointestinal: normal bowel sounds, soft, no splenomegaly, no tenderness (There is a PEG tube), no umbilical hernia - Integumentary Integumentary: normal, normal turgor - Neurologic Neurologic: CNII-XII intact - Musculoskeletal Musculoskeletal: generalized weakness - Psychiatric Psychiatric: no A&O x's 3, no appropriate affect, no intact judgment & insight - Labs CBC & Chem 7: 07/02/16 06:12 07/02/16 06:12 Labs: Abnormal Lab Results - Last 24 Hours (Table) 06/30/16 07/01/16 07/01/16 Range/Units 14:43 05:50 05:50 WBC 3.3 L (3.8-10.6) k/uL RBC 3.88 L 3.59 L (4.30-5.90) m/uL Hgb 11.0 L D 10.3 L (13.0-17.5) gm/dL Hct 34.0 L 31.5 L (39.0-53.0) % Plt Count 134 L 121 L (150-450) k/uL Lymphocytes # 0.4 L 0.3 L (1.0-4.8) k/uL Potassium 3.3 L (3.5-5.1) mmol/L Chloride 110 H (98-107) mmol/L BUN 29 H (9-20) mg/dL Calcium 8.3 L (8.4-10.2) mg/dL Total Protein 5.0 L (6.3-8.2) g/dL Albumin 2.5 L (3.5-5.0) g/dL Assessment and Plan Plan: 1. Coffee-ground emesis with possible GI bleed. Hemoglobin is stable at this time, continue IV fluid resuscitation the form of normal saline, start the patient on Protonix 40 mg IV push every 12 hours, GI consultation for possible EGD if needed be. Monitor the patient hemoglobin and hematocrit. 2. CAD. Continue patient on metoprolol 25 mg per PEG tube once every day, hold aspirin for now. 3. Hypertension and hypertensive cardiovascular disease. Continue clonidine patch increased 0.2 mg once every week, continue metoprolol 25 mg per PEG tube once every day, increase losartan to 100 mg per PEG tube once every day. 4. Lewy body dementia. Continue patient on Namenda 5 mg per PEG tube twice every day. 5. Parkinsonism. Patient is not taking any medication at this time continue lorazepam 0.5 mg per PEG tube 3 times every day as needed. 6. Enlarged prostate. Monitor the patient for urinary retention. 7. History of TIA in the past stable at this time. 8. Behavioral disturbances with the dementia. Continue Ativan 0.5 mg per PEG tube 3 times every day. 9. Chronic kidney disease stage II. Stable at this time. 10. DVT prophylaxis. Continue patient on heparin 5000 units subcutaneously every 12 hours, bilateral knee-high ZARA hose, SCD's. 11. GI prophylaxis. Protonix 40 mg IV push every 12 hours. 12. Patient is full code. 13. Admit to inpatient. Estimate a length of stay 2 midnights. Discharge plan: Return to [facility] on Sunday Impression and plan of care have been directed as dictated by the signing physician. Isidra Potter nurse practitioner acting as scribe for signing physician. Time with Patient: Greater than 30
[2016-07-02] MEDS ORDERED: cloNIDine 0.2 MG/24HR PATCH 1 PATCH PATCH TRANSDERM SCH (10:30)
[2016-07-02] MEDS: LOSARTAN 50 MG TAB PEG/G-TUBE SCH (16:59)
[2016-07-02] MEDS: traZODone HCL 50 MG TAB PEG/G-TUBE SCH (22:02)
[2016-07-02 23:50] VITALS: RESP 16
[2016-07-03] MEDS ORDERED: ACETAMINOPHEN TAB 325 MG TAB PO PRN (00:27)
[2016-07-03 07:19] VITALS: BP 167/75; PULSE 61; TEMP 97.8
[2016-07-03] MEDS: PANTOPRAZOLE 40 MG/10 ML VIAL IVP SCH (08:22)
[2016-07-03] MEDS: METOPROLOL TARTRATE 12.5 MG TAB PO SCH (08:22)
[2016-07-03] MEDS: MEMANTINE 5 MG TAB PEG/G-TUBE SCH (08:23)
[2016-07-03] MEDS: CHOLECALCIFEROL 1,000 UNIT TAB PEG/G-TUBE SCH (08:23)
--- NOTE | 2016-07-03 08:54 | P.PN ---
Subjective Principal diagnosis: GI bleed 85-year-old male with a history of Parkinson's and PEG tube admitted with coffee -ground gastric fluid emanating from PEG tube. Patient was started on tube feeds over the weekend without recurrence of GI bleed. Hemoglobin stable 10.8 yesterday. Objective - Vital Signs Vital signs: Vital Signs Temp 97.8 F 07/03/16 07:00 Pulse 61 07/03/16 07:00 Resp 16 07/03/16 07:00 BP 167/75 07/03/16 07:00 Pulse Ox 93 L 07/03/16 07:00 Intake & Output 07/02/16 07/03/16 07/03/16 18:59 06:59 18:59 Intake Total 200 600 Balance 200 600 Weight 65.5 kg Intake: Tube Feeding 200 600 Other: Voiding Method Diaper Diaper Incontinent Incontinent # Voids 2 2 # Bowel Movements 0 - Exam General appearance: The patient is awake no acute distress noncommunicative. HET: Head is normocephalic and atraumatic. Pupils are equal and reactive. Oropharynx is clear without lesions. Neck: Supple without lymphadenopathy. Trachea midline. Heart: S1 S2. Regular rate and rhythm. Lungs: No crackles or wheezes are heard. Abdomen: Soft, peg tube without erythema or drainage, bleeding. Tube feeds infusing. Nondistended with bowel sounds. No peritoneal signs. No palpable organomegaly or masses. Extremities: Normal skin color and turgor. No cyanosis, rash, ulceration, clubbing, or edema. Radial and pedal pulses are 2/4 bilaterally. Neurological: No focal deficits. Strength and sensation are grossly intact. - Labs CBC & Chem 7: 07/02/16 06:12 07/02/16 06:12 Labs: Microbiology - Last 24 Hours (Table) 07/02/16 04:53 Urine Culture - Preliminary Urine,Clean Catch Assessment and Plan (1) Upper gastrointestinal hemorrhage Narrative/Plan: Coffee-ground colored gastric fluid emanating from PEG site possible peptic ulcer disease possible gastritis possible esophagitis Status: Acute (2) S/P percutaneous endoscopic gastrostomy (PEG) tube placement Narrative/Plan: History of PEG tube Status: Acute (3) Dementia Status: Acute (4) Parkinsons disease Status: Acute Plan: 1. Continue GI prophylaxis on discharge Protonix 40 mg daily. 2. No plans to proceed with EGD considering hemoglobin has remained stable without evidence of overt GI bleed. We'll follow as needed. Assessment and plan a care discussed with Dr. Guillaume.
[2016-07-03 09:00] LABS: CH 27.6; CHCM 32.4; HCT 33.3 % (39.0-53.0); HDW 3.04; HGB 11.1 gm/dL (13.0-17.5); MCH 28.6 pg (25.0-35.0); MCHC 33.4 g/dL (31.0-37.0); MCV 85.5 fL (80.0-100.0); Mean Platelet Volume 8.4; RBC 3.89 m/uL (4.30-5.90)
[2016-07-03 09:07] LABS: ALT 20 U/L (21-72); AST 15 U/L (17-59); Alkaline Phosphatase 89 U/L (38-126); Anion Gap 10 mmol/L; Blood Urea Nitrogen 23 mg/dL (9-20); Calcium 8.4 mg/dL (8.4-10.2); Carbon Dioxide 28 mmol/L (22-30); Chloride 107 mmol/L (98-107); Glucose 141 mg/dL (74-99); Non-African American GFR(MDRD) >60 (>60 ml/min/1.73 sqM); Potassium 3.5 mmol/L (3.5-5.1); Sodium 145 mmol/L (137-145); Total Bilirubin 0.4 mg/dL (0.2-1.3); Total Protein 5.5 g/dL (6.3-8.2)
--- NOTE | 2016-07-03 10:15 | P.DS ---
Providers Date of admission: 06/29/16 22:36 Expected date of discharge: 07/03/16 Attending physician: Kody Parker Primary care physician: Kody Parker [facility] Course: This is an 85-year-old male one of my patient with a previous medical history significant for CAD, hypertension and hypertensive cardio vascular disease, large prostate, vascular dementia, parkinsonism, chronic and disease stage III, PEG tube placement and replacement about a few months back, patient was in his usual state of health about yesterday when he developed to have a significant coffee-ground emesis as well as a coffee ground material coming out of the PEG tube site looks, patient blood pressure was stable and vital signs were all stable however because of the presentation he was sent to the ER for evaluation his hemoglobin is normal however because of that he was admitted to the hospital for evaluation and GI consultation for evaluation of the PEG tube site and for possible upper GI bleed. Patient has been cared for at [facility] by our service, he has been bed ridden/wheelchair within secondary to significant spasticity in both lower extremities, and he has been using tube feeding along with comfort food. 07/01: Patient has been seen by GI with recommendations to continue Protonix 40 mg every 12 hours, bedside PEG lavage. Hemoglobin has dropped to 10.3. Potassium will be replaced. Metoprolol succinate changed to Lopressor to be given through PEG tube. 07/02: Please note bedside PEG lavage was not ordered. He has been resumed on tube feedings. He should and is on PEG tube feedings. Potassium will be replaced. Heparin discontinued due to low platelets and GI bleed. Catapres patch increased due to high blood pressure readings. Patient will be transferred to [facility]. 07/03: Hemoglobin has been stable at 11.1 with no signs of GI bleed. Medications have been adjusted for blood pressure. Aspirin will be resumed. Patient will be discharged back to [facility] under the care of Dr. Parker. Discharge diagnoses: 1. Coffee-ground emesis with possible GI bleed. 2. CAD. 3. Hypertension and hypertensive cardiovascular disease. 4. Lewy body dementia. 5. Parkinsonism. 6. Enlarged prostate. 7. History of TIA in the past stable at this time. 8. Behavioral disturbances with the dementia. 9. Chronic kidney disease stage II. Discharge plan: Return to [facility] on Sunday Impression and plan of care have been directed as dictated by the signing physician. Isidra Potter nurse practitioner acting as scribe for signing physician. Patient Condition at Discharge: Good Plan - Discharge Summary New Discharge Prescriptions: LORazepam [Ativan] 0.5 tab PEG/G-TUBE Q8HR PRN #90 tablet PRN Reason: Anxiety Discharge Medication List Aspirin 81 mg PEG/G-TUBE DAILY 01/08/15 [History] Cholecalciferol [Vitamin D3] 1,000 unit PEG/G-TUBE DAILY@0800 01/08/15 [History] Cyanocobalamin [Vitamin B-12] 500 mcg PEG/G-TUBE DAILY@0801/08/15 [History] traZODone HCL [Desyrel] 50 mg PEG/G-TUBE HS@199901/08/15 [History] Acetaminophen [Tylenol] 500 mg PEG/G-TUBE Q6H PRN MDD 1,000MG 04/10/16 [History] Lactose-Reduced Food/Fiber [Jevity 1.2 Dominic Liquid] 90 ml PEG/G-TUBE BID [History] Memantine HCl [Namenda] 5 mg PEG/G-TUBE BID 04/10/16 [History] Skin Prep Unk 1 applic TOPICAL BID@799,199904/10/16 [History] LORazepam [Ativan] 0.5 tab PEG/G-TUBE Q8HR PRN #90 tablet 07/03/16 [Rx] Losartan [Cozaar] 100 mg PEG/G-TUBE DAILY@1700 tab 07/03/16 [Rx] Metoprolol Tartrate [Lopressor] 12.5 mg PO BID tab 07/03/16 [Rx] cloNIDine 0.2 MG/24HR PATCH [Catapres-TTS] 1 patch TRANSDERM Q7D patch [Rx] Follow up Appointment(s)/Referral(s): Kody Parker MD [Primary Care Provider] - 1 Week (at [facility]) Patient Instructions/Handouts: Gastrointestinal Bleeding (DC) Discharge Disposition: TRANSFER TO SNF/ECF
== END 2016-07-03 14:16 | DRG 378 ==
LOC: EEVIPCON 20:41 → EC 20:41 → 6SEL 22:36 → 4MS4W 07-02 11:33
PROVIDERS: ADMIT Internal Medicine; ATTEND Internal Medicine
DX: K92.2 Gastrointestinal hemorrhage, unspecified (principal); F02.81 Dementia in other diseases classified elsewhere, unspecified severity, with behavioral disturbance; F01.51 Vascular dementia, unspecified severity, with behavioral disturbance; I13.10 Hypertensive heart and chronic kidney disease without heart failure, with stage 1 through stage 4 chronic kidney disease, or unspecified chronic kidney disease; D69.6 Thrombocytopenia, unspecified; G31.83 Neurocognitive disorder with Lewy bodies; H35.30 Unspecified macular degeneration; H91.90 Unspecified hearing loss, unspecified ear; G89.29 Other chronic pain; M54.9 Dorsalgia, unspecified; K44.9 Diaphragmatic hernia without obstruction or gangrene; K21.9 Gastro-esophageal reflux disease without esophagitis; F41.9 Anxiety disorder, unspecified; M19.91 Primary osteoarthritis, unspecified site; I25.10 Atherosclerotic heart disease of native coronary artery without angina pectoris; N40.0 Benign prostatic hyperplasia without lower urinary tract symptoms; N18.2 Chronic kidney disease, stage 2 (mild); Z87.891 Personal history of nicotine dependence; Z86.73 Personal history of transient ischemic attack (TIA), and cerebral infarction without residual deficits; Z93.1 Gastrostomy status; Z74.01 Bed confinement status; Z79.82 Long term (current) use of aspirin; Z79.899 Other long term (current) drug therapy
CPT/HCPCS: 36415; 80053; 81003; 82550; 82553; 83605; 83690; 83735; 84484; 85025; 85027; 85610; 85730; 86850; 86900; 86901; 87077; 87086; 87186; 87502; 93005; 94760; 96361; 96374; 96375; 99285